=== PATIENT | male | born 1945 | race Caucasian/White ===

== ENCOUNTER 2016-12-15 09:54 | Day surgery (SDC) | payer MEDICARE ==
[~2016-12-15 09:54] MED LIST: Acetaminophen TAB* 325 MG PO PRN; Buffered Lidocaine 0.9% SYRIN* 5 ML/SYR SYRINGE INTRADERM ONE; Famotidine IV* 10 MG/ML 2 ML (20 mg) IV SLOW PU ONE
[2016-12-15] MEDS ORDERED: Midazolam* 1 MG/ML 2 ML VIAL (2 MG) ONE (12:39)
[2016-12-15 13:08] VITALS: BP 143/68
--- NOTE | 2016-12-15 16:23 | OP ---
DATE OF OPERATION: 12/15/2016 - [facility] DATE OF : 1945. SURGEON: Juan Portillo M.D. PREOPERATIVE DIAGNOSIS: Cataract left eye. POSTOPERATIVE DIAGNOSIS: Cataract left eye. OPERATIVE PROCEDURE: Phacoemulsification left eye with IOL. DESCRIPTION OF PROCEDURE: The patient was brought to the operating room after being given 1/2% Alcaine with epinephrine drops in the preoperative area. The eye was prepped and draped in the usual sterile fashion. Sterile drape and eyelid speculum were placed. Again, topical 1/2% Alcaine with epinephrine was given. A paracentesis incision was made at the 3 o'clock position with the No.75 blade. Clear cornea incision 2.2 x 2.2-mm was created at the 6 o'clock position starting at the anterior limbus using the 2.2-mm keratome. The anterior chamber was irrigated with 0.4 mL of 1% non-preservative intracameral lidocaine and filled with DisCoVisc. A capsulorrhexis was completed using the cystotome and the Utrata forceps. Hydrodissection was performed with balanced salt solution. The lens nucleus was removed with the Phacoemulsification handpiece without incident. Cortex was removed with the irrigation-aspiration handpiece. The capsular bag was re-inflated using DisCoVisc and an [id number] implant was inserted with the shooter. The irrigation-aspiration handpiece was used to remove all residual DisCoVisc. The eye was refilled with balanced salt solution and the wound checked and found to be watertight. Topical Maxitrol drops were given. [id number]/[facility] #: [id number] [facility] HOSPITALRafael
== END 2016-12-15 13:25 | disposition home or self-care (01) ==
LOC: OREAST 09:54
PROVIDERS: ATTEND Specialist
DX: H25.812 Combined forms of age-related cataract, left eye (principal); E11.9 Type 2 diabetes mellitus without complications; Z79.4 Long term (current) use of insulin; I10 Essential (primary) hypertension; Z87.891 Personal history of nicotine dependence; H04.123 Dry eye syndrome of bilateral lacrimal glands; D31.31 Benign neoplasm of right choroid
CPT/HCPCS: J2250; V2632

== ENCOUNTER 2016-12-22 07:32 | Day surgery (SDC) | payer MEDICARE ==
[~2016-12-22 07:32] MED LIST changes: -Famotidine IV* 10 MG/ML 2 ML (20 mg) IV SLOW PU ONE
[2016-12-22] MEDS ORDERED: Midazolam* 1 MG/ML 2 ML VIAL (2 MG) ONE (09:57)
[2016-12-22 10:18] VITALS: BP 129/65
--- NOTE | 2016-12-22 10:54 | OP ---
OPERATIVE NOTE: DATE OF OPERATION: 12/22/16 DATE OF : [birth year] SURGEON: Juan Portillo MD. PREOPERATIVE DIAGNOSIS: Cataract, right eye. POSTOPERATIVE DIAGNOSIS: Cataract, right eye. OPERATIVE PROCEDURE: Phacoemulsification, right eye with IOL. PROCEDURE: The patient was brought to the operating room after being given 1/2% Alcaine with epinep hrine drops in the preoperative area. The eye was prepped and draped in the usual sterile fashion. Sterile drape and eyelid speculum were placed. Again, topical 1/2% Alcaine with epinephrine was gi aaron. A paracentesis incision was made at the 9 o'clock position with the No.75 blade. Clear cornea incision 2.2 x 2.2-mm was created at the 12 o'clock position starting at the anterior limbus using the 2.2-mm keratome. The anterior chamber was irrigated with 0.4 mL of 1% non-preservative intracam eral lidocaine and filled with DisCoVisc. A capsulorrhexis was completed using the cystotome and th e Utrata forceps. Hydrodissection was performed with balanced salt solution. The lens nucleus was r emoved with the Phacoemulsification handpiece without incident. Cortex was removed with the irrigat ion-aspiration handpiece. The capsular bag was re-inflated using DisCoVisc and an [id number] 22.5 impla nt was inserted with the shooter. The irrigation-aspiration handpiece was used to remove all residu al DisCoVisc. The eye was refilled with balanced salt solution and the wound checked and found to b e watertight. Topical Maxitrol drops were given. [id number]/[facility] #: [id number]
[2016-12-22] MEDS ORDERED: acetaZOLAMIDE TAB* 250 MG ONE (11:35)
[2016-12-22] MEDS ORDERED: Phenylephrine 2.5% OPTH.SOL* 2 ML BTL ONE (11:35)
[2016-12-22] MEDS ORDERED: Povidone Iodine 5% OPTH* 30 ML BTL ONE (11:35)
[2016-12-22] MEDS ORDERED: Proparacaine 0.5% OPHTH.SOL* 15 ML BTL ONE (11:35)
[2016-12-22] MEDS ORDERED: Ketorolac 0.5% OPHTH (NF) 0.5 % 5 ML BTL ONE (11:35)
[2016-12-22] MEDS ORDERED: Lidocaine 1% MPF* 2 ML VIAL ONE (11:35)
[2016-12-22] MEDS ORDERED: Lidocaine 2% EPI 1:200000 MPF* 20 ML VIAL ONE (11:35)
[2016-12-22] MEDS ORDERED: Neomycin/Polymy/Dex OPTH.SUSP* MAXITROL 0.1% 5 ML ONE (11:35)
[2016-12-22] MEDS ORDERED: Cyclopentolate 1% OPTH.SOL* 2 ML BTL ONE (11:35)
[2016-12-22] MEDS ORDERED: Buffered Lidocaine 0.9% SYRIN* 5 ML/SYR SYRINGE ONE (11:36)
== END 2016-12-22 10:33 | disposition home or self-care (01) ==
LOC: OREAST 07:32
PROVIDERS: ATTEND Specialist
DX: E11.36 Type 2 diabetes mellitus with diabetic cataract (principal); H25.811 Combined forms of age-related cataract, right eye; Z96.1 Presence of intraocular lens; D31.31 Benign neoplasm of right choroid; H04.123 Dry eye syndrome of bilateral lacrimal glands; E66.9 Obesity, unspecified; I10 Essential (primary) hypertension; Z79.4 Long term (current) use of insulin; Z79.82 Long term (current) use of aspirin; M10.9 Gout, unspecified; E11.40 Type 2 diabetes mellitus with diabetic neuropathy, unspecified; Z87.891 Personal history of nicotine dependence; Z88.8 Allergy status to other drugs, medicaments and biological substances
CPT/HCPCS: A9270-GY; J2250; V2632

== ENCOUNTER 2018-12-05 11:30 | Emergency (ER) | payer MEDICARE ==
[2018-12-05 11:53] VITALS: BP 164/80
[2018-12-05] MEDS ORDERED: Silver Nitrate/Potassium Nitr* 1 EA STICK TOPICAL ONE (12:37)
--- NOTE | 2018-12-05 13:14 | UC ---
Skin Complaint HPI - HPI Summary HPI Summary: Patient is a 73yo male presenting with "bleeding cut" on his left anterior thigh. States he looked down last night at his leg before bed and noticed it was bleeding. States the bleeding does not stop and he has to keep constant pressure on it. He denies any trauma or known injury to the area. He denies any pain, redness, swelling, fever, nausea, or vomiting. Patient denies numbness and tingling. Denies decreased ROM. Denies pain in lower leg. Denies SOB and difficulty breathing. Denies anything like this before. - History of Current Complaint Chief Complaint: UCLaceration Stated Complaint: LEG LACERATION Hx Obtained From: Patient Onset/Duration: Sudden Onset, Lasting Hours Timing: Constant Pain Intensity: 0 Pain Scale Used: 0-10 Numeric - Allergy/Home Medications Allergies/Adverse Reactions: Allergies Allergy/AdvReac Type Severity Reaction Status Date / Time losartan Allergy Coughing Verified 12/05/18 11:53 Home Medications: Home Medications Chlorthalidone 25 mg PO DAILY 12/05/18 [History Confirmed 12/05/18] Irbesartan 150 mg PO DAILY 12/05/18 [History Confirmed 12/05/18] PMH/Surg Hx/FS Hx/Imm Hx Endocrine History: Diabetes Cardiovascular History: Hypertension - Surgical History Surgical History: Yes Surgery Procedure, Year, and Place: 2008 AND 2013 COLONOSCOPY, [facility] [place]. 2009 LEFT KIDNEY REMOVAL, [facility] [place]. 2004 BACK SURGERY, [facility] [place]. skin graft to left leg - Social History Alcohol Use: Weekly Alcohol Amount: 7 drinks PER WEEK Substance Use Type: Marijuana Substance Use Comment - Amount & Last Used: 5-7 TIMES A WEEK Smoking Status (MU): Never Smoked Tobacco Type: Cigarettes Amount Used/How Often: 1+ PPD Length of Time of Smoking/Using Tobacco: 20 YRS Have You Smoked in the Last Year: No When Did the Patient Quit Smoking/Using Tobacco: 1985 Review of Systems All Other Systems Reviewed And Are Negative: No Constitutional: Positive: Negative. Negative: Fever, Chills, Fatigue Skin: Positive: Other - bleeding laceration. Negative: Rash, Bruising Respiratory: Positive: Negative. Negative: Shortness Of Breath, Cough Cardiovascular: Positive: Negative. Negative: Palpitations, Chest Pain Motor: Negative: Decreased ROM, Weakness Neurovascular: Negative: Decreased Sensation Musculoskeletal: Negative: Arthralgia, Calf Tenderness Neurological: Negative: Paresthesia, Numbness Physical Exam Triage Information Reviewed: Yes Appearance: Well-Appearing, No Pain Distress, Well-Nourished Vital Signs: Initial Vital Signs Temp 97.1 F 12/05/18 11:46 Pulse 74 12/05/18 11:46 Resp 18 12/05/18 11:46 BP 164/80 12/05/18 11:46 Pulse Ox 98 12/05/18 11:46 Vital Signs Reviewed: Yes Eyes: Positive: Conjunctiva Clear ENT: Positive: Hearing grossly normal Neck: Positive: Supple Respiratory: Positive: Normal breath sounds, No respiratory distress Cardiovascular: Positive: RRR Musculoskeletal Exam: Normal Musculoskeletal: Positive: Strength Intact, ROM Intact Neurological: Positive: Alert, Muscle Tone Normal Psychological: Positive: Age Appropriate Behavior Skin: Positive: Other - small bleeding superificial vein noted on left anterior thigh. dark red bood. no erythema or warmth noted. Course/Dx - Course Course Of Treatment: I cauterized the patient's bleeding superficial vein with silver nitrate and covered the area with surgicel. The area was then covered with gauze. Patient tolerated this well. I stressed to the patient the importance of follow up with his PCP as soon as possible for further evaluation, and preferably before he goes out of town for the next 5 days. I also notified the patient of his elevated blood pressure today and instructed him to also mention that to his PCP to make sure his hypertension is being properly managed. Patient voiced understanding and stated he would call his PCP as soon as he leaves here. - Diagnoses Provider Diagnosis: Bleeding from varicose veins of left lower extremity Discharge ED - Sign-Out/Discharge Documenting (check all that apply): Patient Departure All imaging exams completed and their final reports reviewed: No Studies - Discharge Plan Condition: Stable Disposition: HOME Referrals: Phi Moore MD [Primary Care Provider] - As Soon As Possible Additional Instructions: As discussed, you appeared to have a bleeding superficial vein on your leg today. Your vein was cauterized with silver nitrate to stop the bleeding and covered with a dressing. Keep the area clean and dry and avoid friction to the area until you are able to follow up with your primary care physician. It is important to follow up with your primary care physician as soon as possible, and be sure to also mention your elevated blood pressure today here in the office. - Billing Disposition and Condition Condition: STABLE Disposition: Home
== END 2018-12-05 13:25 | disposition home or self-care (01) ==
LOC: UCEAST 11:30
DX: S71.112A Laceration without foreign body, left thigh, initial encounter (principal); X58.XXXA Exposure to other specified factors, initial encounter; Y92.9 Unspecified place or not applicable; I83.892 Varicose veins of left lower extremity with other complications; I10 Essential (primary) hypertension; E11.9 Type 2 diabetes mellitus without complications
CPT/HCPCS: 12001; 99211; A9270-GY; G0463

== ENCOUNTER 2018-12-23 13:19 | Emergency (ER) | payer MEDICARE ==
[2018-12-23 13:37] VITALS: BP 139/77
[2018-12-23] MEDS ORDERED: Benzoin Compound STICK TOPICAL ONE (13:48)
[2018-12-23] MEDS ORDERED: Tetan/Diph/Pertus SYR(Tdap)* 0.5 ML SYR(BOOSTRIX) use SYR contains LATEX IM ONE (13:50)
--- NOTE | 2018-12-23 14:14 | UC ---
Laceration HPI - HPI Summary HPI Summary: patient cut L 3rd finger on kitchen knife last night at 8p. he washed wound and covered with bandaid, but today wound is still bleeding denies loss of movement, cannot remember last Tdap - History Of Current Complaint Chief Complaint: UCLaceration Stated Complaint: FINGER LACERATION Time Seen by Provider: 12/23/18 13:39 Hx Obtained From: Patient Laceration Location: Finger Mechanism Of Injury: Sharp Trauma Onset/Duration: Sudden Onset Severity: Mild Pain Intensity: 2 Aggravating Factors: Movement Related History: Dominant Hand Right - Allergies/Home Medications Allergies/Adverse Reactions: Allergies Allergy/AdvReac Type Severity Reaction Status Date / Time losartan Allergy Coughing Verified 12/23/18 13:40 PMH/Surg Hx/FS Hx/Imm Hx Previously Healthy: Yes Endocrine History: Diabetes, Dyslipidemia, Other - gout Cardiovascular History: Hypertension - Surgical History Surgical History: Yes Surgery Procedure, Year, and Place: 2008 AND 2013 COLONOSCOPY, [facility] [place]. 2009 LEFT KIDNEY REMOVAL, [facility] [place]. 2004 BACK SURGERY, [facility] [place]. skin graft to left leg - Family History Known Family History: Positive: Hypertension - Social History Occupation: Retired Lives: With Family Alcohol Use: Weekly Alcohol Amount: 7 drinks PER WEEK Substance Use Type: Marijuana Substance Use Comment - Amount & Last Used: 5-7 TIMES A WEEK Smoking Status (MU): Never Smoked Tobacco Type: Cigarettes Amount Used/How Often: 1+ PPD Length of Time of Smoking/Using Tobacco: 20 YRS Have You Smoked in the Last Year: No When Did the Patient Quit Smoking/Using Tobacco: 1985 Review of Systems All Other Systems Reviewed And Are Negative: Yes Constitutional: Positive: Negative Respiratory: Positive: Negative Cardiovascular: Positive: Negative Musculoskeletal: Positive: Negative Neurological: Positive: Negative Psychological: Positive: Negative Is Patient Immunocompromised?: No Physical Exam Triage Information Reviewed: Yes Appearance: Well-Appearing, No Pain Distress, Well-Nourished Vital Signs: Initial Vital Signs Temp 97.8 F 12/23/18 13:32 Pulse 67 12/23/18 13:32 Resp 16 12/23/18 13:32 BP 139/77 12/23/18 13:32 Pulse Ox 96 12/23/18 13:32 Vital Signs Reviewed: Yes Respiratory Exam: Normal Respiratory: Positive: Lungs clear Cardiovascular Exam: Normal Cardiovascular: Positive: RRR Musculoskeletal: Positive: Strength Intact, ROM Intact Neurological Exam: Normal Psychological Exam: Normal Skin: Positive: Other - 8mm linear lac left 3rd finger, small amount bleeding fom wound (pt on ASA 81 mg) Laceration Repair - Laceration Repair 1 Description: Linear : No Repair Necessary Laceration Size After Repair: Length (cm) - 8mm, Width (mm) - 3mm, Depth (mm) - 3mm Cleansing Completed Via Routine Prep: Yes Closure Material: SteriStrips - with benzoin Laceration Course/Dx - Diagnosis Provider Diagnosis: Finger laceration Discharge ED - Sign-Out/Discharge Documenting (check all that apply): Patient Departure All imaging exams completed and their final reports reviewed: No Studies - Discharge Plan Condition: Good Disposition: HOME Patient Education Materials: Laceration (DC), Tdap and Td Vaccines for Adults ( ED) Referrals: Phi Moore MD [Primary Care Provider] - Additional Instructions: keep finger clean and dry and leave steri strips and splint on for 5-7 days return if signs of infection occur - Billing Disposition and Condition Condition: GOOD Disposition: Home
== END 2018-12-23 14:22 | disposition home or self-care (01) ==
LOC: UCEAST 13:19
DX: S61.213A Laceration without foreign body of left middle finger without damage to nail, initial encounter (principal); I10 Essential (primary) hypertension; E11.9 Type 2 diabetes mellitus without complications; M10.9 Gout, unspecified; Z88.8 Allergy status to other drugs, medicaments and biological substances; Z87.891 Personal history of nicotine dependence; Z23 Encounter for immunization; W26.0XXA Contact with knife, initial encounter; Y92.9 Unspecified place or not applicable
CPT/HCPCS: 90471; 90715; 99213; G0463